=== PATIENT | female | born 1995 | race Caucasian/White ===

== ENCOUNTER 2018-03-13 20:43 | Emergency (ER) | payer OTHER ==
[2018-03-13 21:07] VITALS: O2SAT 99
--- NOTE | 2018-03-13 21:40 | ED.PDOC ---
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 She is reporting that they do feel regular but are not extremely strong. No loss of fluid. No vaginal bleeding. The child has been moving. She does have a history of delivering a child at approximately 33 weeks with her first . care has been largely uncomplicated. No trauma. No signs of illness otherwise. Ultrasound with fast ultrasound shows possibly a mildly reduced KARISSA of around 6. Child is active. Head is down. Placenta is posterior. Heart rates are in the 130s. Timing/Duration: 1-3 hours Severity: mild Improving Factors: nothing Worsening Factors: nothing Associated Symptoms: denies symptoms Allergies/Adverse Reactions: Allergies NO KNOWN ALLERGY Allergy (Verified 03/13/18 21:08) Home Medications: Ambulatory Orders Hydroxyprogesterone Caproate [[place]] 275 mg SC WKLY 03/13/18 Review of Systems - Review of Systems Constitutional: States: no symptoms reported EENTM: States: no symptoms reported Respiratory: States: no symptoms reported Cardiology: States: no symptoms reported Gastrointestinal/Abdominal: States: abdominal pain Genitourinary: States: no symptoms reported Musculoskeletal: States: no symptoms reported Skin: States: no symptoms reported Neurological: States: no symptoms reported Endocrine: States: no symptoms reported All other Systems: No Change from Baseline Past Medical History (General) - Patient Medical History Hx Seizures: No Hx Stroke: No Hx Dementia: No Hx Asthma: No Hx of COPD: No Hx Cardiac Disorders: No Hx Congestive Heart Failure: No Hx Pacemaker: No Hx Hypertension: No Hx Thyroid Disease: No Hx Diabetes: No Hx Gastroesophageal Reflux: No Hx Renal Disease: No Hx of HIV: No Hx MRSA: No Surgical History: no surgical history - Vaccination History Hx Tetanus, Diphtheria Vaccination: Yes Hx Influenza Vaccination: No - Female History Hx Last Menstrual Period: 09/14/17 Patient : Yes Expected Date of Delivery:: 05/26/18 Family Medical History - Family History Mother Family History: Unknown Physical Exam - Physical Exam General Appearance: Alert, Anxious, No apparent distress Eye Exam: bilateral normal Ears, Nose, Throat: hearing grossly normal Respiratory: no respiratory distress, no accessory muscle use Cardiovascular/Chest: normal peripheral pulses, regular rate, rhythm, no edema Peripheral Pulses: radial,right: 2+, radial,left: 2+ Gastrointestinal/Abdominal: non tender - gravid, soft Rectal Exam: deferred, other - physical exam shows a closed cervical os. No obvious pooling of any fluid. 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 monitors for labor are unavailable at this facility. The patient does have a history of labor and delivery with her previous . A fibronectin swab has been taken prior to the digital exam, but we are unable to run here. It will be sent with the patient to hopefully be run at the receiving facility. Dr. Beyer has accepted the transfer for monitoring at [facility]. - Results/Orders Results/Orders: Laboratory Tests 03/13/18 21:26 Urine Color Yellow Urine Appearance Clear Urine pH 6.5 Ur Specific [place] 1.010 Urine Protein Negative Urine Glucose (UA) Negative Urine Ketones Negative Urine Blood Negative Urine Nitrite Negative Urine Bilirubin Negative Urine Urobilinogen 1.0 Ur Leukocyte Esterase Negative Urine RBC 0-1 Urine WBC 3-5 H Ur Epithelial Cells 5-10 Urine Bacteria 2+ H the fibronectin swab will have to be run at the receiving facility. It is being sent with the patient. It was collected before the digital exam was performed. Departure - Departure Clinical Impression: contractions Disposition: Transfer to Hospital Condition: Fair Home Medications: Ambulatory Orders Hydroxyprogesterone Caproate [[place]] 275 mg SC WKLY 03/13/18 Transfer to Outside Facility - Transfer Information Accepting Provider:: dr beyer Accepting Facility: [facility] Reason for Transfer: required specialist not available
[2018-03-13 22:18] VITALS: BP 113/74; TEMP 99.4
== END 2018-03-13 22:22 | disposition short-term general hospital (02) ==
LOC: ER 20:43
DX: O60.03 Preterm labor without delivery, third trimester (principal); Z3A.29 29 weeks gestation of pregnancy